=== PATIENT | male | born 2000 | race Hispanic/Latino ===

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

== ENCOUNTER 2018-08-05 18:54 | Emergency (ER) | payer MEDICAID, OTHER | END 2018-08-05 19:18 | disposition home or self-care (01) | LOC: EDH 18:54 | DX: H60.8X1 Other otitis externa, right ear (principal) ==

== ENCOUNTER 2018-08-07 23:07 | Emergency (ER) | payer OTHER ==
[2018-08-07] MEDS ORDERED: TRAMADOL HCL 50 MG TABLET ONE (23:22)
== END 2018-08-07 23:29 | disposition home or self-care (01) ==
LOC: EDH 23:07
DX: H60.501 Unspecified acute noninfective otitis externa, right ear (principal); Z91.14 Patient's other noncompliance with medication regimen; Z90.49 Acquired absence of other specified parts of digestive tract